=== PATIENT | male | born 1995 | race African-American/Black ===

== ENCOUNTER 2017-07-10 20:52 | Emergency (ER) | payer SELFPAY ==
[~2017-07-10] VITALS: Ht 185.4 cm; Wt 105.0 kg
[~2017-07-10 20:52] MED LIST: ALBUTEROL; CETI5TAB; QVAR; SEREDK; TYLENOL
[2017-07-10] MEDS ORDERED: PREDNISONE 20MG TABLET PO STA (21:58)
[2017-07-10] MEDS ORDERED: IPRATROPIUM/ALBUTEROL 0.5-3(2.5)MG/3ML NEB HHN ONE (22:00)
[2017-07-10] MEDS ORDERED: ALBUTEROL (0.5%) 2.5MG/0.5ML NEB HHN ONE (23:15)
[2017-07-10 23:32] VITALS: BP 137/74
== END 2017-07-10 23:33 | disposition home or self-care (01) ==
LOC: ER 21:51
DX: J45.901 Unspecified asthma with (acute) exacerbation (principal); Z88.6 Allergy status to analgesic agent
CPT/HCPCS: 71010; 94640; 99283; J7512; Z7610; J7620

== ENCOUNTER 2020-09-18 22:02 | Emergency (ER) | payer MEDICAID, OTHER ==
[~2020-09-18] VITALS: Ht 190.5 cm; Wt 109.1 kg
[2020-09-18] MEDS ORDERED: IPRATROPIUM BROMIDE (0.02%) 0.5MG/2.5ML NEB HHN STA (22:12)
[2020-09-18] MEDS ORDERED: METHYLPREDNISOLONE SOD SUCC 125 MG/2 ML VIAL IV STA (22:12)
[2020-09-18] MEDS ORDERED: MAGNESIUM 2 G PREMIX 50 ML IV ONE (22:15)
[2020-09-18] MEDS ORDERED: ALBUTEROL (0.083%) 2.5MG/3ML NEB HHN STA (22:18)
[2020-09-18] MEDS ORDERED: ALBUTEROL (0.083%) 2.5MG/3ML NEB HHN SCH (22:30)
[2020-09-18 22:56] LABS: BASOPHILS % 0.5 % (0.0-2.0); EOSINOPHILS % 3.3 % (0.0-5.0); HEMATOCRIT. 40.8 % (42.0-52.0); HEMOGLOBIN. 13.6 g/dL (14.0-18.0); LYMPHOCYTES % 34.3 % (20.0-50.0); MEAN CORPUSCULAR HEMOGLOBIN 27.6 pg (28.0-32.0); MEAN CORPUSCULAR VOLUME 82.8 fL (80.0-94.0); MEAN PLATELET VOLUME 7.8 fl (7.4-10.4); MONOCYTES % 7.7 % (2.0-8.0); NEUTROPHILS % 54.2 % (40.0-76.0); PLATELET 311 x1000/uL (130-400); RED BLOOD CELL COUNT 4.93 mill/uL (4.7-6.1); RED CELL DISTRIBUTION WIDTH 14.2 % (11.6-14.6)
[2020-09-18 23:04] LABS: CHLORIDE 105 mEq/L (98-107)
[2020-09-19] MEDS ORDERED: AZITHROMYCIN 500 MG TABLET PO ONE
[2020-09-19 00:17] LABS: BG BASE EXCESS -0.4 mmol/L (-2.0-2.0); BG CARBOXYHEMOGLOBIN 0.1 % (0.5-1.5); BG DEOXYHEMOGLOBIN 0.6 % (0.0-5.0); BG FRACTION INSPIRED OXYGEN 100; BG HCO3 ACT 24.7 mmol/L (22.0-26.0); BG METHEMOGLOBIN 0.3 % (0.0-1.5); BG OXYGEN SATURATION 99.4 % (92.0-98.5); BG PCO2 42.2 mmHg (35.0-45.0); BG PH 7.385 (7.350-7.450); BG PO2 263.5 mmHg (75.0-100.0); BG SAMPLE SITE RIGHT RADIAL; BG TOTAL HEMOGLOBIN 14.8 g/dL (12.0-18.0); BG VENT MODE MASK - NRB
[2020-09-19] MEDS ORDERED: ENOXAPARIN 100MG/ML SYR SUBCUT NR (01:15)
[2020-09-19 07:30] VITALS: BP 113/63
== END 2020-09-19 09:18 | disposition left against medical advice (07) ==
LOC: ER 22:02 → ENRESERV 09-19 08:58 → CANRESERV 09-19 08:58 → CANBEDREQ 09-19 09:09 → ER 09-19 09:18
DX: J18.9 Pneumonia, unspecified organism (principal); J96.90 Respiratory failure, unspecified, unspecified whether with hypoxia or hypercapnia; J45.901 Unspecified asthma with (acute) exacerbation; Z20.822 Contact with and (suspected) exposure to COVID-19
CPT/HCPCS: 36415; 36600; 71045; 80053; 82375; 82728; 82805; 83605; 83615; 85025; 86140; 87040; 93005; 94640; 96365; 96372; 96375; 99291; C9803; J1650; J2930; J3475; U0003; Z7610